=== PATIENT | male | born 1980 | race Caucasian/White ===

== ENCOUNTER 2016-11-09 10:58 | Emergency (ER) | payer OTHER ==
[~2016-11-09] VITALS: Ht 170.2 cm; Wt 104.0 kg
[~2016-11-09 10:58] MED LIST: ALBU8.5H5 IH; ERYT1OIN6 LEFT EYE; GENT5DRO28 LEFT EYE
[2016-11-09 11:11] VITALS: Ht 170.2 cm; Wt 104.0 kg
[2016-11-09] MEDS ORDERED: LIDOCAINE 1% (MDV) 20 ML INJ SC ONE (12:30)
[2016-11-09] MEDS ORDERED: IBUP-1542 PO (13:17)
--- NOTE | 2016-11-09 15:00 | ERD ---
DATE OF SERVICE: 11/09/2016 HISTORY OF PRESENT ILLNESS: The patient is a 36-year-old male coming in complaining of a laceration to his left middle finger on the volar aspect. Patient was cleaning with a broom and the metal of the broom cut his finger. His last tetanus shot was in 2013. He is right hand dominant. He has no numbness or tingling to his fingers. He is able to move the finger without difficulty. PAST MEDICAL HISTORY: Asthma. ALLERGIES: PENICILLIN. PAST SURGICAL HISTORY: Appendectomy. SOCIAL HISTORY: Denies. REVIEW OF SYSTEMS: A 12-point review of systems was done. Refer to HPI for positives, all other sy stems negative. PHYSICAL EXAMINATION: VITAL SIGNS: Temperature is 99, pulse 82, blood pressure is 134/79, respiratory 18, O2 saturation 1 00% on room air. Pain intensity is 0/10. GENERAL: The patient is well-appearing, well-nourished, no acute distress. CHEST: Clear to auscultation bilaterally. There are no rales, wheezes or rhonchi. HEART: Regular rate and rhythm. No murmurs, clicks, rubs or gallops. No S3 or S4. EXTREMITIES: Equal pulses bilaterally. There is no peripheral clubbing, cyanosis or edema. No focal swelling or erythema. Full range of motion. Grossly neurovascularly intact. The patient is able to flex and extend the DIP and PIP joint of the left middle finger. Patient has normal radial, ulnar a nd median nerve enervation with pulses intact. Compartments are soft. There is a flap laceration a pproximately 3 cm on the volar aspect of the left middle fingers distal to the PIP joint and extendi ng proximally. There are no foreign bodies. No active bleeding. No tendon or ligament injuries. EMERGENCY ROOM COURSE: Using plain lidocaine, a digital block was applied on the volar aspect. Sit e was adequately numbed and adequately cleaned using plain ____normal saline. Six 5-0 nylon simple interrupted sutures were applied. Edges were well approximated. Site was re-cleaned and bacitracin and bandage was applied. DIAGNOSIS: Skin laceration. MEDICAL DECISION MAKING: I have low suspicion for tendon or ligament injury; low suspicion for vas cular injury. DISCHARGE: The patient is discharged stable. Patient is told to return to the ER if symptoms progr ess or worsen. All other questions answered at time of discharge. Discharge summary given at the t [place] of departure. Patient understood and complied with plan. Dictated By: OJ OTT for MOLLY KHAN/ASHLEY Conf#: [id number] DID#: [id number]
== END 2016-11-09 13:23 | disposition home or self-care (01) ==
LOC: FTE 10:58
DX: S61.213A Laceration without foreign body of left middle finger without damage to nail, initial encounter (principal); J45.909 Unspecified asthma, uncomplicated; W26.8XXA Contact with other sharp object(s), not elsewhere classified, initial encounter; Y92.9 Unspecified place or not applicable
CPT/HCPCS: 12002; Z7610